=== PATIENT | female | born 1980 | race Caucasian/White ===

== ENCOUNTER → 2018-07-03 10:45 | Outpatient (CLI) | payer SELFPAY ==
[2018-07-03 10:23] VITALS: BMI 24.3
[2018-07-03 11:03] VITALS: BP 96/63; PULSE 63; RESP 16; TEMP 36.3; O2SAT 97; BMI 23.9
[2018-07-03] MEDS: Dextrose 5%-Lactated Ringers 1,000 ML 999 ML IV (11:30)
[2018-07-03] MEDS: Ondansetron 4 MG/2 ML Vial IV (11:30)
== END ==
PROVIDERS: Referring Provider Obstetrics & Gynecology; Visit Provider Obstetrics & Gynecology
DX: E86.0 Dehydration (principal)
CPT/HCPCS: 96361 ×2; 96374; A4216; J2405

== ENCOUNTER → 2020-08-23 13:10 | Outpatient (CLI) | payer SELFPAY ==
[2020-07-18 10:08] VITALS: BMI 26.1
--- NOTE | 2020-08-23 13:19 | US_ITS ---
STUDY: ULTRASOUND OF THE FEMALE PELVIS - COMPLETE REASON FOR EXAM: Female, 40 years old. HX OF 2 RECENT MISCARRIAGES -- A2 LMP: 08/02/2020. TECHNIQUE: Transabdominal and Transvaginal TECHNICAL QUALITY: Adequate. COMPARISON: None. FINDINGS: The uterus is retroverted and is in a midline position. The uterus measures 9.2 cm x 7.3 cm x 4.9 cm. Normal uterine cervix. The endometrium measures 14 mm in thickness, and is hyperechoic. There is no demonstrated endometrial mass. There is no demonstrated myometrial mass. I.U.D. - The patient does not have an I.U.D. The right ovary is visualized. The right ovary measures 4.2 cm x 3.1 cm x 2.5 cm. There is a 2.4 cm x 1.8 cm x 1.3 cm cyst with low-level echoes within it. This may represent an hemorrhagic cyst. There is no visualized right adnexal mass or complex lesion. There is normal arterial and normal venous vascularity. The left ovary is visualized. The left ovary measures 3.2 cm x 1.6 cm x 1.5 cm. There is no left ovarian cyst or ovarian mass. There is no visualized left adnexal mass or complex lesion. There is normal arterial and normal venous vascularity. There is minimal fluid in the cul-de-sac. US/Pelvic (Non ) IMPRESSION: Thickened endometrium. 2.4 cm Bard 1.8 cm x 1.3 cm complex cyst in the right ovary. This may represent an hemorrhagic cyst. Follow-up is recommended. Electronically Signed: Alessandro Landers MD at 14:36 EST , Service support ,
--- NOTE | 2020-08-23 13:19 | US_ITS ---
STUDY: ULTRASOUND BREAST - LEFT REASON FOR EXAM: Female, 40 years old. Palpable lump left breast. TECHNIQUE: Axial and longitudinal images of the LEFT breast were performed with a high resolution ultrasound transducer. # OF IMAGES: 10 COMPARISON: Comparison is made with prior mammogram done earlier today. FINDINGS: LEFT Breast: The area of the palpable abnormality was examined by ultrasound. No sonographic abnormality is seen. US/Breast Limited Unilateral IMPRESSION: No sonographic abnormality is seen. ASSESSMENT CATEGORY: BIRADS Category 1: Negative. A letter regarding these results will be sent to the patient by the facility within 30 days. Electronically Signed: Alessandro Landers MD at 15:56 EST , Service support ,
--- NOTE | 2020-08-23 13:19 | US_ITS ---
STUDY: ULTRASOUND OF THE FEMALE PELVIS - COMPLETE REASON FOR EXAM: Female, 40 years old. HX OF 2 RECENT MISCARRIAGES -- A2 LMP: 08/02/2020. TECHNIQUE: Transabdominal and Transvaginal TECHNICAL QUALITY: Adequate. COMPARISON: None. FINDINGS: The uterus is retroverted and is in a midline position. The uterus measures 9.2 cm x 7.3 cm x 4.9 cm. Normal uterine cervix. The endometrium measures 14 mm in thickness, and is hyperechoic. There is no demonstrated endometrial mass. There is no demonstrated myometrial mass. I.U.D. - The patient does not have an I.U.D. The right ovary is visualized. The right ovary measures 4.2 cm x 3.1 cm x 2.5 cm. There is a 2.4 cm x 1.8 cm x 1.3 cm cyst with low-level echoes within it. This may represent an hemorrhagic cyst. There is no visualized right adnexal mass or complex lesion. There is normal arterial and normal venous vascularity. The left ovary is visualized. The left ovary measures 3.2 cm x 1.6 cm x 1.5 cm. There is no left ovarian cyst or ovarian mass. There is no visualized left adnexal mass or complex lesion. There is normal arterial and normal venous vascularity. There is minimal fluid in the cul-de-sac. US/Transvaginal Non- IMPRESSION: Thickened endometrium. 2.4 cm Bard 1.8 cm x 1.3 cm complex cyst in the right ovary. This may represent an hemorrhagic cyst. Follow-up is recommended. Electronically Signed: Alessandro Landers MD at 14:36 EST , Service support ,
--- NOTE | 2020-08-23 13:19 | BI_ITS ---
MAMMOGRAPHY - BILATERAL DIAGNOSTIC REASON FOR EXAM: Female, 40 years old. Left breast lump. PERTINENT HISTORY: Non-contributory. TECHNIQUE: Digital bilateral breast iveth (3D mammographic acquisition) in the CC and MLO projections. 2-D mediolateral oblique (MLO) and craniocaudad (CC) views of both breasts were obtained. CAD: Full Field Digital Mammography with Computer Added Detection was performed. COMPARISON: None. Baseline examination. FINDINGS: Breast Composition: The breasts are heterogeneously dense, which may obscure small masses. There are no dominant masses or suspicious calcifications. No other significant abnormalities are identified. BI/DIAG MAMM W/CAD, BILAT IMPRESSION: Negative diagnostic mammogram. With the patient''s history of a palpable left breast lump, correlation with ultrasound is recommended. ASSESSMENT CATEGORY: BIRADS Category 0: Incomplete. Need additional imaging evaluation. A letter regarding these results will be sent to the patient by the facility within 30 days. Approximately 10% of breast cancers are not detected by mammography. A normal mammogram should not delay biopsy of a clinically suspicious abnormality. Electronically Signed: Alessandro Landers MD at 15:24 EST , Service support ,
== END ==
PROVIDERS: Referring Provider Obstetrics & Gynecology; Visit Provider Obstetrics & Gynecology
DX: N63.20 Unspecified lump in the left breast, unspecified quadrant (principal); N96 Recurrent pregnancy loss; N83.201 Unspecified ovarian cyst, right side; R93.89 Abnormal findings on diagnostic imaging of other specified body structures
CPT/HCPCS: 76642; 76830; 76856; 77062; 77066; G0279

== ENCOUNTER → 2020-11-09 12:58 | Outpatient (CLI) | payer SELFPAY ==
[2020-07-18 10:08] VITALS: BMI 26.1
[2020-11-09 14:09] LABS: hCG Titer Quant., Serum 4843 mIU/mL (1-3)
== END ==
PROVIDERS: Referring Provider Obstetrics & Gynecology; Visit Provider Obstetrics & Gynecology
DX: Z34.90 Encounter for supervision of normal pregnancy, unspecified, unspecified trimester (principal)
CPT/HCPCS: 36415; 84702

== ENCOUNTER → 2020-11-11 12:36 | Outpatient (CLI) | payer SELFPAY ==
[2020-07-18 10:08] VITALS: BMI 26.1
[2020-11-11 14:16] LABS: hCG Titer Quant., Serum 9019 mIU/mL (1-3)
[2020-11-14 20:07] LABS: PTT-LA 31.8 sec (0.0-51.9); Thrombin Time 17.1 sec (0.0-23.0); dPT Confirm Ratio 1.21 Ratio (0.00-1.40)
[2020-11-15 11:02] LABS: Interpretation Comment: (.)
== END ==
PROVIDERS: Referring Provider Obstetrics & Gynecology; Visit Provider Obstetrics & Gynecology
DX: O26.20 Pregnancy care for patient with recurrent pregnancy loss, unspecified trimester (principal); Z3A.00 Weeks of gestation of pregnancy not specified
CPT/HCPCS: 36415; 84702; 86850; 86900; 86901

== ENCOUNTER → 2020-12-08 10:27 | Outpatient (CLI) | payer SELFPAY ==
[2020-12-08 09:22] VITALS: BMI 26.1
[2020-12-08 10:52] LABS: Absolute Lymphocyte Count 1.81 X10^3/uL (0.83-4.51); Absolute Neutrophil Count 8.8 X10^3/uL (2.0-7.7); Basophil# 0.03 X10^3/uL; Basophil% 0.3 % (0-1); Eosinophil# 0.07 X10^3/uL; Eosinophils% 0.6 % (0-5); Hematocrit 38.9 % (37-47); Hemoglobin 13.1 g/dL (12.0-15.0); Lymphocyte # 1.81 X10^3/ul (0.83-4.51); Lymphocyte % 15.6 % (19-41); Mean Corp Hgb Conc 33.7 g/dL (32-36); Mean Corpuscular Hgb 29.3 pg (27.0-32.0); Mean Platelet Vol. 9.9 fl (6.2-12.0); Monocyte# 0.83 X10^3/uL; Monocyte% 7.2 % (0-10); NRBC Flagged by Analyzer 0 % (0-5); Neutrophil # 8.82 X10^3/uL (2.7-7.7); Platelet Count 308 K/mm3 (150-450); RBC Distribution Width CV 12.8 % (11.6-14.6); RBC Distribution Width SD 40.8 fl (35.1-43.9); Red Blood Count 4.47 M/mm3 (4.2-5.4); White Blood Count 11.6 K/mm3 (4.4-11.0)
[2020-12-08 11:38] LABS: Rubella IgG Reactive (Nonreactive)
== END ==
PROVIDERS: Referring Provider Obstetrics & Gynecology; Visit Provider Obstetrics & Gynecology
DX: Z34.90 Encounter for supervision of normal pregnancy, unspecified, unspecified trimester (principal)
CPT/HCPCS: 36415; 85025; 86762; 86850; 86900; 86901; 87086; 87088

== ENCOUNTER 2020-12-22 10:49 | Day surgery (SDC) | payer SELFPAY ==
[2020-12-20 13:24] VITALS: BMI 26.1
[2020-12-22] VITALS (8 sets, daily range): BP systolic 100–120; BP diastolic 63–85; PULSE 63–87; RESP 16–18; TEMP 36.5–36.9; O2SAT 98–100; BMI 25.8
--- NOTE | 2020-12-22 | POC_PTH ---
PATIENT: YOSSI NEWSOME LOC: [facility] [place] U#:[id number] AGE/SX: 40/F ROOM: RE12/22/[address]: Dr. Katheryn Garcia MD : 1980 BED: DIS: 12/22/2020 SPEC #: [id number] RECD: 12/22/20 15:06 STATUS: DELONTE SANYA #: [id number] MARCIAL: 12/22/20 00:[address]: Katheryn Garcia DEPT: SURGICAL PATHOLOGY RECD BY: Laverne Singleton ENTERED: 12/23/20 07:55 SP TYPE: PROD CONC OTHR DR: No Primary Care Phys Tissues: Product of conception, NOS Procedures: Surgery Specimen Level IV HEADER OPERATION: Suction dilation and curettage PRE-OP DIAGNOSIS: Missed TISSUE SUBMITTED: Products of conception MICROSCOPIC DIAGNOSIS Products of conception: [place], gestational endometrium and immature chorionic villi (products of conception). SJ:nicki 12/26/2020 MICROSCOPIC DESCRIPTION Slides are reviewed. GROSS DESCRIPTION Received in fixative is one container labeled with the patient's name and designated products of conception. The specimen consists of multiple irregular fragments of pink-hill soft tissue that in aggregate measure 8 x 7 x 1 cm. parts are not grossly recognized. Medical Radiation Tech portions are submitted in one cassette. / AM:nicki 12/23/20 TC:5 CPT: 65922 ADDENDUM ADDENDUM ADDENDUM ADDENDUM ADDENDUM ADDENDUM ADDENDUM ADDENDUM ADDENDUM ADDENDUM 02/13/2021 10:36 ADDENDUM 02/13/2021 10:36 ADDENDUM 02/13/2021 10:36 ADDENDUM 02/13/2021 10:36 ADDENDUM 02/13/2021 10:36 REPORT FROM [facility] TEST: Reveal (R) POC FFPE MICROARRAY RESULT: Normal female INTERPRETATION: arr [hg19] (1-22,X) x2 Please see complete report in e-chart or EMR
[2020-12-22] MEDS: Doxycycline 100 MG CAPSULE PO (12:05)
[2020-12-22] MEDS: Lactated Ringers 1,000 ML 100 ML IV ×3 (12:07→15:33)
[2020-12-22 12:13] LABS: Hematocrit 37.8 % (37-47); Hemoglobin 13.2 g/dL (12.0-15.0); Mean Corp Hgb Conc 34.9 g/dL (32-36); Mean Corpuscular Hgb 30.1 pg (27.0-32.0); Mean Corpuscular Volume 86.3 fL (81-99); Platelet Count 278 K/mm3 (150-450); RBC Distribution Width CV 12.7 % (11.6-14.6); Red Blood Count 4.38 M/mm3 (4.2-5.4); White Blood Count 10.8 K/mm3 (4.4-11.0)
--- NOTE | 2020-12-22 12:22 | PCM.HP.BLA ---
History and Physical Date of Admission: 12/22/20 Intake Vital Signs 12/20/20 13:23 12/20/20 13:24 Height 5 ft 5 in Weight: 158 lb BMI 26.2 26.1 BP 140/90 H Intake Visit Reasons: Follow up Chief Complaint: est ob follow up Director Card Required: No Is patient in pain?: No Allergies No Known Drug Allergies Adverse Reaction (Verified 12/08/20 09:22) Other Medications levothyroxine 50 mcg tablet 50 mcg PO DAILY 07/18/20 [History Confirmed 12/20/20] enoxaparin 40 mg/0.4 mL subcutaneous syringe 40 mg SUBCUT DAILY #4 ml 11/14/20 [Rx Confirmed 12/20/20] ondansetron 4 mg disintegrating tablet 4 mg PO Q4H PRN #60 tab 11/17/20 [Rx Confirmed 12/20/20] prenat.vits,amador,wnx-qeld-ebrzl 1 tab PO DAILY 11/29/20 [History Confirmed 12/20/20] Last Menstral Period: 10/08/20 Zika: Zika virus screening: Negative : No PFSH PFSH Medical History Antiphospholipid antibody positive Thyroid disorder Surgical History H/O dilation and curettage Family History Sister Cancer hodgkins lymphoma Diabetes Social History adopted: No household members: spouse and children number of children: 4 current occupational status: unemployed current occupation: [employer] Smoking Status: Never smoker alcohol intake: never substance use type: does not use caffeine: Yes what type of physical activity do you participate in: none seatbelt use: always do you feel safe at home: Yes additional social history: Delfino- both are self employed Pregancy History 6 Elective abortions Hx Para 4 Spontaneous abortions 2 Hx # Term Pregnancies Ectopic pregnancies Hx # Pregnancies Multiple births # of living children 4 Past Pregnancies Del. Date Name GA/Weeks Outcome Route Bth Weight Gen Labor Lgth Anesthesia Del Locatn Provider FOB Unknown 2006 Luis E live - Male [facility] Unknown 2008 Maynor live - full term [facility] Unknown 2012 Michaela live - full term Female [place] Unknown 2014 Bhargavi live - full term Female Home Delivery Date: SROM at 27 wk, del at 32 wk. Jennifer Fuentes Delivery Date: No notes to display Delivery Date: PTL, bedrest off and on last 12 weeks Jennifer Valente Delivery Date: No notes to display HPI Follow up Details: YOSSI NEWSOME is a 40 year old who presents for routine OB visit. Upon evaluation pole is measuring 9 weeks 6 days with no heart rate seen no color Doppler flow seen. No gross abnormalities are noted. Patient denies any vaginal bleeding or loss of fluid and denies any significant cramping. She has been taking her Lovenox and baby aspirin regularly. She denies any trauma or other issues. OB Visit JAYLEN Calculator Estimated Delivery Date Method Current WG Current Estimate 07/15/21 LMP (Certain) 10w 4d Other Estimates 07/10/21 Ultrasound #1 11w 2d Initial Weight: 158 lb Date EGA Weight BP Urine Prot Glucose FHR FuHt Pres Dilation Effaced St Visit Note 11/29/20 7w 3d 12/08/20 8w 5d 159 lb (+16 oz) 92/66 160 SM- CRL 2.9 cons with LMP 12/20/20 10w 3d 158 lb (+0 oz) 140/90 ACOG First Trimester First Trimester: Discussed Diagnostics Diagnostics Diagnostics: Blood Type O POSITIVE Antibody Screen NEGATIVE Group B Strep DNA Negative (Negative-) Rubella IgG Antibody Reactive (Nonreactive) Hgb 13.1 g/dL (12.0-15.0) Hct 38.9 % (37-47) Details: HIV: Urine Culture: Sequential Screen: NIPT Screen: ROS Const Reports as per HPI and Denies fever(s) ENT Reports system reviewed and no additional complaints, except as documented Card Reports system reviewed and no additional complaints, except as documented Resp Reports system reviewed and no additional complaints, except as documented GI Reports as per HPI Reports as per HPI Musc Reports system reviewed and no additional complaints, except as documented Skin/Breast Reports system reviewed and no additional complaints, except as documented Neuro Yes system reviewed and no additional complaints, except as documented Endo Reports system reviewed and no additional complaints, except as documented Exam Const General: healthy appearing, comfortable and no acute distress HENMT Head: normal to inspection and normocephalic Neck Neck: no lymphadenopathy noted Thyroid: thyroid normal Chest Chest palpation & inspection: normal inspection of the chest Resp Effort & Inspection: normal respiratory effort Cardio Rate: regular rate Rhythm: regular rhythm GI Inspection: normal to inspection Palpation: soft and nontender External Female Exam: normal external appearance Speculum Exam - Vagina: normal appearance of the vagina Bimanual Exam- Vagina & Uterus: uterine shape normal and non-tender Skin General: no rashes or lesions noted Neuro General: no focal motor deficits Extrem General: normal to inspection and no pedal edema Psych Appearance: grossly normal Coding Level of Care Code Off vis,est,level 4 Diagnoses Missed O02.1 History of hyperemesis gravidarum Z87.59 Antiphospholipid antibody positive R76.0 Family history of muscular dystrophy Z82.0 Z34.90 Supervision of high risk , antepartum O09.90 COVID-19 virus antibody detected R76.8 History of recurrent miscarriages N96 Assessment and Plan Assessment and Plan (1) Missed : Status: Acute Comment: Plan suction D&C. Discussed Travis anora patient to decide if she wants that and or to take remains home (2) History of hyperemesis gravidarum: Status: Acute Plan - Dr. Katheryn Garcia MD: After discussing the patient's diagnosis and treatment plan options, patient wishes to proceed with surgical management. I have discussed with the patient the risks, benefits, and alternatives of the procedure which include but are not limited to risks of anesthesia, bleeding, infection, possible damage to bowel, bladder, or surrounding vasculature which could lead to additional surgery to evaluate any complications. Patient agrees to procedure and wishes to proceed. ACOG/uptodate references given for additional information regarding procedure. (3) Antiphospholipid antibody positive: Status: Acute Comment: lovenox daily and ASA 81mg (4) Family history of muscular dystrophy: Status: Acute Comment: sister has 2 children with SMA. Declines carrier screen (5) : Status: Acute Comment: Declines carrier and NIPT screen. (6) Supervision of high risk , antepartum: Status: Acute Comment: Grav7/4 JAYLEN 07/15/21 Maynor Reza Kayla, Christine. Spouse Delfino (7) COVID-19 virus antibody detected: Status: Acute Comment: Prior to (8) History of recurrent miscarriages: Status: Acute Comment: discussed APL testing and ordered ultrasound. declines karyotype UPDATE- I have seen the patient and performed any clinically relevant updates to the history and physical exam. Katheryn Garcia MD
--- NOTE | 2020-12-22 12:23 | PCM.OPRPT ---
Problems Associated Problem List Diagnoses (1) Antiphospholipid antibody positive: (2) Missed : (3) COVID-19 virus antibody detected: (4) Supervision of high risk , antepartum: (5) : (6) Family history of muscular dystrophy: (7) History of hyperemesis gravidarum: (8) History of recurrent miscarriages: Report of Operation Date of Procedure: 12/22/20 Pre-Operative Diagnosis: see problem list Post-Operative Diagnosis: same Surgery/Procedure Performed:: Suction dilation and curettage Description of Surgical Findings:: no FHT present, Nonviable 10 weeks office messenger: None Type of Anesthesia: Local MAC Special Medications: none Specimen's removed: POC Drains: none Estimated Blood Loss (mL): 50 Fluids Replaced: crystalloid Description of Procedure: Patient was taken to the operating room and placed under MAC local anesthesia. She was prepped and draped in the normal sterile fashion the dorsal lithotomy position. Bladder was drained of clear urine and anterior lip of the cervix was grasped and the uterus sounded to []. Cervix was progressively dilated to allow passage of a [] suction curette. Progressive passes were made removing the retained products of conception without complication. Sharp curettage confirmed complete removal of the retained products. All instruments were removed from the vagina and excellent hemostasis was noted and the patient was taken to recovery in stable condition. Grafts/Implants Used: none Complications none Admit VTE Documentation VTE Present on Admission: No VTE Mechan Device Prophylaxis: SCD's Procedures Urinary/Genital 52xxx-59xxx: [id number] Surg Trtmt missed Ab, 1TM
--- NOTE | 2020-12-22 12:56 | PCM.DC ---
Discharge Instructions Follow Up Care Test Results: Test results from this visit will be discussed in further detail at your follow-up appointment, if applicable. Discharge Plan Admission Primary Reason for Your Visit: suction d and c Attending Provider: Katheryn Garcia Primary Care Provider: Care Physician,Rachana Primary Discharge Orders/Prescriptions Prescriptions: Continued levothyroxine 50 mcg tablet 50 mcg PO DAILY RF: 0 prenat.vits,amador,ivp-iqik-jvsar Tablet 1 tab PO DAILY RF: 0 ondansetron 4 mg tablet,disintegrating 4 mg PO Q4H PRN (Reason: nausea and vomiting) Qty: 60 RF: 2 Discontinued enoxaparin [Lovenox] 40 mg/0.4 mL syringe 40 mg subcut DAILY Qty: 4 RF: 12 Referrals / Follow Up: Katheryn Garcia MD [STAFF PHYSICIAN] - Care Physician,No Primary [Primary Care Provider] - Disposition Discharge Orders: Discharge Patient (Routine); Ordered 12/22/20 Ordered By: Dr. Katheryn Garcia
[2020-12-22] MEDS: Lidocaine 1% (30 ml sdv) 30 ML Vial (13:02)
[2020-12-22 14:48] LABS: NATERA MAILED SPECIMEN
--- NOTE | 2020-12-22 15:17 | PCM.DC ---
Discharge Instructions Diet Discharge Diet: No restrictions Activity Discharge Activity: Return to Normal Activity, May Shower and May Take a Tub Bath (after 1 week) May resume sexual activity in: 1-2 weeks Weight Bearing Status: Weight bearing as tolerated Lifting Restrictions: none Dressing / Incision Call your doctor if you observe: Fever of 101 or Higher, Using more than 1 pad per hour, Shortness of breath and Uncontrolled pain Follow Up Care Please Follow Up With: Katheryn Garcia MD When: Call [phone] to schedule appointment. Test Results: Test results from this visit will be discussed in further detail at your follow-up appointment, if applicable. Discharge Plan Admission Primary Reason for Your Visit: suction d and c Attending Provider: Katheryn Garcia Primary Care Provider: Care Physician,Rachana Primary Discharge Orders/Prescriptions Prescriptions: Continued levothyroxine 50 mcg tablet 50 mcg PO DAILY RF: 0 prenat.vits,amador,[id number]-veyo-yghif Tablet 1 tab PO DAILY RF: 0 ondansetron 4 mg tablet,disintegrating 4 mg PO Q4H PRN (Reason: nausea and vomiting) Qty: 60 RF: 2 Discontinued enoxaparin [Lovenox] 40 mg/0.4 mL syringe 40 mg subcut DAILY Qty: 4 RF: 12 Referrals / Follow Up: Katheryn Garcia MD [STAFF PHYSICIAN] - Care Physician,No Primary [Primary Care Provider] - Disposition Discharge Orders: Discharge Patient (Routine); Ordered 12/22/20 Ordered By: Dr. Katheryn Garcia
== END 2020-12-22 16:41 ==
LOC: SDC 10:54
PROVIDERS: Referring Provider Obstetrics & Gynecology; Visit Provider Obstetrics & Gynecology
PROC: (CPT 59820; principal; 2020-12-22 12:15)
DX: O02.1 Missed abortion (principal); N96 Recurrent pregnancy loss; O99.281 Endocrine, nutritional and metabolic diseases complicating pregnancy, first trimester; E07.9 Disorder of thyroid, unspecified; Z20.822 Contact with and (suspected) exposure to COVID-19; O09.521 Supervision of elderly multigravida, first trimester; R76.0 Raised antibody titer; R76.8 Other specified abnormal immunological findings in serum; Z3A.10 10 weeks gestation of pregnancy; Z87.59 Personal history of other complications of pregnancy, childbirth and the puerperium; Z86.16 Personal history of COVID-19
CPT/HCPCS: 01965; 59820; 85027; 86850; 86900; 86901; 87426; 88305; J7120; J2405

== ENCOUNTER → 2020-12-22 | Outpatient (CLI) | payer SELFPAY ==
[2021-01-03 10:42] VITALS: BMI 25.8
== END | disposition home or self-care (01) ==
LOC: LABSPEC 01-06 14:13
PROVIDERS: Visit Provider Obstetrics & Gynecology
DX: O02.1 Missed abortion (principal); Z3A.00 Weeks of gestation of pregnancy not specified

== ENCOUNTER → 2021-01-03 11:38 | Outpatient (CLI) | payer SELFPAY ==
[2021-01-03 10:42] VITALS: BMI 25.8
[2021-01-03 12:17] LABS: T4 Free Direct 1.02 ng/dL (0.76-1.46); Thyroid Stim Hormone (TSH) 2.51 uIU/mL (0.358-3.74)
== END ==
PROVIDERS: Obstetrics & Gynecology; Referring Provider Internal Medicine Endocrinology, Diabetes & Metabolism; Visit Provider Internal Medicine Endocrinology, Diabetes & Metabolism
DX: E03.9 Hypothyroidism, unspecified (principal)
CPT/HCPCS: 36415; 84439; 84443

== ENCOUNTER → 2021-02-03 16:15 | Outpatient (CLI) | payer SELFPAY ==
[2021-02-03 15:19] VITALS: BMI 24.0
[2021-02-03 17:12] LABS: hCG Titer Quant., Serum 4 mIU/mL (1-3)
== END ==
LOC: LABSPEC 16:15 → LAB 16:35
PROVIDERS: Referring Provider Obstetrics & Gynecology; Visit Provider Obstetrics & Gynecology
DX: N92.6 Irregular menstruation, unspecified (principal)
CPT/HCPCS: 36415; 84702

== ENCOUNTER → 2021-02-06 14:56 | Outpatient (CLI) | payer SELFPAY ==
[2021-02-03 15:19] VITALS: BMI 24.0
[2021-02-06 15:41] LABS: hCG Titer Quant., Serum 3 mIU/mL (1-3)
== END ==
PROVIDERS: Referring Provider Obstetrics & Gynecology; Visit Provider Obstetrics & Gynecology
DX: N96 Recurrent pregnancy loss (principal)
CPT/HCPCS: 36415; 84702

== ENCOUNTER → 2022-02-09 | Outpatient (CLI) | payer SELFPAY ==
[2022-02-13 21:50] LABS: HPV Reflexed? NOT INDICATED
== END | disposition home or self-care (01) ==
LOC: LABSPEC 10:11
PROVIDERS: Visit Provider Obstetrics & Gynecology
DX: Z12.4 Encounter for screening for malignant neoplasm of cervix (principal)
CPT/HCPCS: 88175; G0145